=== PATIENT | male | born 1985 | race Hispanic/Latino ===

== ENCOUNTER 2019-01-10 12:38 | Inpatient (IN) | payer BC, SELFPAY ==
[2019-01-10] VITALS (10 sets, daily range): BP systolic 122–143; BP diastolic 67–87; PULSE 91–108; RESP 12–26; TEMP 36.5–36.6; O2SAT 87–98; BMI 36.5
--- NOTE | 2019-01-10 12:43 | DI.RAD.S_ITS ---
PROCEDURE: XR CHEST 2V INDICATIONS: shortness of breath TECHNIQUE: 2 views of the chest were acquired. COMPARISON: None. FINDINGS: Surgical changes and devices: None. Lungs and pleura: Lungs are clear. No pleural effusions or pneumothorax. Mediastinum: Mediastinal contours are normal. Heart size is normal. Bones and chest wall: No suspicious bony abnormalities. Soft tissues appear unremarkable. IMPRESSION: Normal chest. Dictated by: Jing Mckeon M.D. on 01/10/2019 at 13:10 Approved by: Jing Mckeon M.D. on 01/10/2019 at 13:12
--- NOTE | 2019-01-10 15:06 | ED_ITS ---
HPI - SOB/Dyspnea General Chief Complaint: Shortness of Breath/Dyspnea Stated Complaint: Oxygen low Time Seen by Provider: 01/10/19 15:00 Source: patient Mode of arrival: ambulatory Limitations: no limitations History of Present Illness 33-year-old male, nonsmoker not fully vaccinated and otherwise healthy presents with an portfolio administrator from the [employer] and a chief complaint of progressive cough and shortness of breath with hypoxia measured in the mid 80s. He recently flew from [place] for work related reasons. He denies any history of the same. Does not smoke. 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 MD Complaint: shortness of breath and cough Onset (ago): day(s) Severity: moderate Consistency/Duration: constant Relieving factors: oxygen and rest Exacerbating factors: movement and coughing Associated symptoms: denies other symptoms Related Data Home Medications Medication Instructions Recorded Confirmed No Known Home Medications 01/10/19 01/10/19 Allergies Allergy/AdvReac Type Severity Reaction Status Date / Time No Known Drug Allergies Allergy Verified 01/10/19 12:40 Review of Systems Constitutional Denies chills, Denies fever(s), Denies lethargy and Denies weakness Eyes Denies change in vision, Denies eye discharge, Denies irritation and Denies loss of vision ENT Ears, Nose, Mouth, and Throat: Denies change in voice, Denies neck pain and Denies sore throat Cardiovascular Denies chest pain, Denies irregular heart rhythm, Denies lightheadedness, Denies palpitations, Reports dyspnea, Denies dyspnea on exertion and Denies orthopnea Respiratory Reports cough, Reports dyspnea, Denies dyspnea on exertion and Denies wheezing Gastrointestinal Gastrointestinal: Denies abdominal pain, Denies change in bowel habits, Denies diarrhea, Denies nausea and Denies vomiting Genitourinary Denies hematuria, Denies flank pain, Denies urinary incontinence and Denies urinary urgency Musculoskeletal Denies neck pain Integumentary/Breasts Denies pruritus, Denies erythema, Denies rash and Denies wounds Neurologic Denies confusion, Denies loss of vision and Denies weakness Psychiatric Denies anxiety, Denies confusion, Denies depression, Denies homicidal ideation and Denies suicidal ideation Endocrine Denies palpitations Hematologic/Lymphatic Denies easy bruising Allergic/Immunologic Denies wheezing PFSH Social History Smoking Status: Never smoker Social History household members: spouse and family Smoking Status: Never smoker Exam Narrative Exam Narrative: GENERAL: This is a well-nourished, well-developed patient, in mild distress. HEAD: Atraumatic. Normocephalic. No temporal or scalp tenderness. EYES: Pupils equal round and reactive. Extraocular motions intact. No scleral icterus. No injection or drainage. ENT: Nose without bleeding, purulent drainage or septal hematoma. Throat without erythema, tonsillar hypertrophy or exudate. Uvula midline. Airway patent. NECK: Trachea midline. No JVD or lymphadenopathy. Supple, nontender, no meningeal signs. CARDIOVASCULAR: Regular rate and rhythm without murmurs, gallops, or rubs. RESPIRATORY: Clear to auscultation. Expiratory wheeze GASTROINTESTINAL: Abdomen soft, non-tender, nondistended. No hepato-splen omegaly, or palpable masses. No guarding. EXTREMITIES: No clubbing, cyanosis, or edema. No joint tenderness, effusion, or edema noted. BACK: Nontender without deformity or crepitance. No flank tenderness. NEURO: AOx3. SKIN: No rash or erythema. Initial Vital Signs Initial Vital Signs: Vital Signs Temperature 97.7 F 01/10/19 12:40 Pulse Rate 108 H 01/10/19 12:40 Respiratory Rate 20 01/10/19 12:40 Blood Pressure 138/87 01/10/19 12:40 Pulse Oximetry 94 01/10/19 12:40 Course Orders Ordered: ED Orders 01/10/19 12:43 Consult to Respiratory Therapy Evaluate & Treat XR chest 2V Stat 01/10/19 15:06 Arterial Blood Gas Stat 01/10/19 15:20 B Type Natriuretic Peptide Stat Basic Metabolic Panel Stat Complete Blood Count AUTO DIFF Stat Magnesium Stat Procalcitonin Stat Troponin & CK Cardiac Panel Stat 01/10/19 15:56 CT angio chest PE protocol Stat 01/10/19 17:29 Respiratory Panel (Film Array) Stat Discontinued Medications Albuterol/Ipratropium (Duoneb) 3 ml INH NOW ONE Stop: 01/10/19 16:43 Last Admin: 01/10/19 16:54 Dose: 3 ml Methylprednisolone (Solu-Medrol 125 Mg Vial) 125 mg IV NOW ONE Stop: 01/10/19 16:43 Last Admin: 01/10/19 17:24 Dose: 125 mg Reevaluation(s) Reevaluation #1: though patient has a relatively normal peak flow he is given a DuoNeb and does feel some improvement in symptoms but not in measurable and points Consultations Consultation #1: Dr. Jameson happy to accept Vital Signs - 8 hr 01/10/19 12:40 01/10/19 15:05 01/10/19 15:29 Temperature 97.7 F Pulse Rate 108 H 95 H Respiratory Rate 20 26 H Blood Pressure 138/87 Blood Pressure [Left Arm] 122/78 Pulse Oximetry 94 87 L 92 01/10/19 16:07 01/10/19 16:45 01/10/19 17:15 Temperature Pulse Rate 95 H 94 H 102 H Respiratory Rate 12 23 22 Blood Pressure Blood Pressure [Left Arm] 131/79 128/76 143/76 H Pulse Oximetry 97 95 98 01/10/19 17:34 01/10/19 17:43 Temperature Pulse Rate 105 H 100 H Respiratory Rate 26 H 22 Blood Pressure Blood Pressure [Left Arm] 128/76 Pulse Oximetry 95 95 MDM - SOB/Dyspnea Medical Records Attestation: I reviewed the patient's medical records. Lab Data Result diagrams: 01/10/19 15:20 01/10/19 15:20 Lab Results 01/10/19 01/10/19 01/10/19 Range/Units 15:06 15:20 15:20 WBC 14.0 H (4.5-11.0) X10^3/uL RBC 4.75 (4.5-5.9) X10^6/uL Hgb 14.5 (13.5-17.5) g/dL Hct 43.0 (41-53) % MCV 90.6 (80-100) fL MCH 30.5 (26-34) PG MCHC 33.7 (30-36) % RDW 14.1 (11.6-14.8) % Plt Count 239 (150-400) X10^3/uL Neut % (Auto) 71.1 (50-75) % Lymph % (Auto) 17.4 L (25-40) % [place] % (Auto) 6.3 (3-14) % Eos % (Auto) 4.8 H (2-4) % Baso % (Auto) 0.4 (0-2) % Neut # (Auto) 83271 H (6470-2697) /uL Lymph # (Auto) 2400 (7666-0761) /uL [place] # (Auto) 900 (0-900) /uL Eos # (Auto) 700 H (0-450) /uL Baso # (Auto) 100 (0-100) /uL ABG pH 7.41 (7.35-7.45) ABG pCO2 38.4 (35-45) mmHg ABG pO2 54 L (80-100) mmHg ABG HCO3 25 (22-26) mmol/L ABG Total CO2 26 (21-31) mmol/L ABG O2 Saturation 88 L (95-100) % ABG Base Excess 0.0 (-2-2) mmol/L FiO2 0.21 Sodium 141 (137-145) mmol/L Potassium 3.8 (3.4-5.1) mmol/L Chloride 104 (98-107) mmol/L Carbon Dioxide 26 (22-32) mmol/L BUN 14 (9-20) mg/dL Creatinine 1.00 (0.66-1.25) mg/dL Estimated GFR > 60.0 (>60) mL/min BUN/Creatinine Ratio 14.0 (6-22) Glucose 93 (70-100) mg/dL Calcium 8.8 (8.4-10.2) mg/dL Magnesium 2.2 (1.6-2.3) mg/dL Total Creatine Kinase 748 H (55-170) U/L CK-MB (CK-2) 1.86 (<2.37) ng/mL CK-MB (CK-2) Rel Index 0.2 L (1.5-5.0) % Troponin I < 0.012 (0.01-0.034) ng/mL B-Natriuretic Peptide < 100 (<100) Procalcitonin (<0.5) ng/mL Chlamy pneumoniae PCR (Not Detect) Adenovirus (PCR) (Not Detect) B.parapertussis DNA PCR (Not Detect) Coronavirus OC43 (PCR) (Not Detect) Coronavirus HKU1 (PCR) (Not Detect) Coronavirus 229E (PCR) (Not Detect) Coronavirus NL63 (PCR) (Not Detect) Human Metapneumovir PCR (Not Detect) Influenza Type A (PCR) (Not Detect) Influenza Type B (PCR) (Not Detect) M. pneumoniae (PCR) (Not Detect) Parainfluenza 1 (PCR) (Not Detect) Parainfluenza 2 (PCR) (Not Detect) Parainfluenza 3 (PCR) (Not Detect) Parainfluenza 4 (PCR) (Not Detect) RSV (PCR) (Not Detect) Entero/Rhino (PCR) (Not Detect) 01/10/19 01/10/19 Range/Units 15:20 17:29 WBC (4.5-11.0) X10^3/uL RBC (4.5-5.9) X10^6/uL Hgb (13.5-17.5) g/dL Hct (41-53) % MCV (80-100) fL MCH (26-34) PG MCHC (30-36) % RDW (11.6-14.8) % Plt Count (150-400) X10^3/uL Neut % (Auto) (50-75) % Lymph % (Auto) (25-40) % [place] % (Auto) (3-14) % Eos % (Auto) (2-4) % Baso % (Auto) (0-2) % Neut # (Auto) (2376-1457) /uL Lymph # (Auto) (8161-4159) /uL [place] # (Auto) (0-900) /uL Eos # (Auto) (0-450) /uL Baso # (Auto) (0-100) /uL ABG pH (7.35-7.45) ABG pCO2 (35-45) mmHg ABG pO2 (80-100) mmHg ABG HCO3 (22-26) mmol/L ABG Total CO2 (21-31) mmol/L ABG O2 Saturation (95-100) % ABG Base Excess (-2-2) mmol/L FiO2 Sodium (137-145) mmol/L Potassium (3.4-5.1) mmol/L Chloride (98-107) mmol/L Carbon Dioxide (22-32) mmol/L BUN (9-20) mg/dL Creatinine (0.66-1.25) mg/dL Estimated GFR (>60) mL/min BUN/Creatinine Ratio (6-22) Glucose (70-100) mg/dL Calcium (8.4-10.2) mg/dL Magnesium (1.6-2.3) mg/dL Total Creatine Kinase (55-170) U/L CK-MB (CK-2) (<2.37) ng/mL CK-MB (CK-2) Rel Index (1.5-5.0) % Troponin I (0.01-0.034) ng/mL B-Natriuretic Peptide (<100) Procalcitonin < 0.05 (<0.5) ng/mL Chlamy pneumoniae PCR Not detected (Not Detect) Adenovirus (PCR) Not detected (Not Detect) B.parapertussis DNA PCR Not detected (Not Detect) Coronavirus OC43 (PCR) Not detected (Not Detect) Coronavirus HKU1 (PCR) Not detected (Not Detect) Coronavirus 229E (PCR) Not detected (Not Detect) Coronavirus NL63 (PCR) Not detected (Not Detect) Human Metapneumovir PCR Not detected (Not Detect) Influenza Type A (PCR) Not detected (Not Detect) Influenza Type B (PCR) Not detected (Not Detect) M. pneumoniae (PCR) Not detected (Not Detect) Parainfluenza 1 (PCR) Not detected (Not Detect) Parainfluenza 2 (PCR) Not detected (Not Detect) Parainfluenza 3 (PCR) Not detected (Not Detect) Parainfluenza 4 (PCR) Not detected (Not Detect) RSV (PCR) Not detected (Not Detect) Entero/Rhino (PCR) Not detected (Not Detect) Imaging Data Chest x-ray: Radiologist's impression: [address] [address] XRay Report Signed Patient: Francesco Sosa RMR#: [id number] : 1985Acct:[id number] Age/Sex: 33 / MDate of Service: 01/10/19 Loc: ED Accession Number: [id number] Procedure: XR chest 2V Ordering Provider: Aniket Corona D.O. PROCEDURE: XR CHEST 2V INDICATIONS: shortness of breath TECHNIQUE: 2 views of the chest were acquired. COMPARISON: None. FINDINGS: Surgical changes and devices: None. Lungs and pleura: Lungs are clear. No pleural effusions or pneumothorax. Mediastinum: Mediastinal contours are normal. Heart size is normal. Bones and chest wall: No suspicious bony abnormalities. Soft tissues appear unremarkable. IMPRESSION: Normal chest. Dictated by: Jing Mckeon M.D. on 01/10/2019 at 13:10 Approved by: Jing Mckeon M.D. on 01/10/2019 at 13:12 CT scan - chest: Radiologist's impression: Patient: Francesco Sosa R#: [id number] : 1985Acct:[id number] Age/Sex: 33 / MDate of Service: 01/10/19 Loc: ED Accession Number: [id number] Procedure: CT angio chest PE protocol Ordering Provider: Aniket Corona D.O. PROCEDURE: CT ANGIO CHEST PE PROTOCOL INDICATIONS: Chest pain, shortness of breath, hypoxia TECHNIQUE: After the administration of intravenous contrast, 2 mm thick sections acquired from the pulmonary apices to the posterior costophrenic angles. 3-dimensional maximum intensity projection (MIP) coronal and sagittal reformats were then acquired through the thorax. For radiation dose reduction, the following was used: automated exposure control, adjustment of mA and/or kV according to patient size. COMPARISON: [facility], CR, XR CHEST 2V, 01/10/2019, 12:52. FINDINGS: Image quality: Diagnostic Pulmonary arteries: Suboptimal timing of the contrast bolus is identified, limiting evaluation for small pulmonary emboli. No intraluminal filling defects are identified within the pulmonary arteries to the level of the segmental branches. Lungs and pleura: Lungs are clear. No pleural effusions or pneumothorax. Central and peripheral airways are patent. Mediastinum: Heart size is normal, without pericardial effusion. No mediastinal or hilar adenopathy. Thoracic aorta is normal in caliber and enhancement. Esophagus is normal in caliber. There may be a very small hiatal hernia. Bones and chest wall: No suspicious bony lesions. Ribs and thoracic spine appear intact throughout. Thyroid gland is not enlarged or adequately evaluated. No axillary or supraclavicular adenopathy. Abdomen: The included portions of the upper abdomen demonstrate the liver to be diffusely hypodense when compared to the spleen. Areas of normal hepatic density appear to be present within the gallbladder fossa. Otherwise, included portions of the upper abdomen are unremarkable. IMPRESSION: 1. Suboptimal timing of the contrast bolus without a definite pulmonary embolism evident to the level of the segmental branches. 2. No acute cardia pulmonary processes evident. 3. Hepatic steatosis. 4. Possible small hiatal hernia. Dictated by: Neto Vasquez M.D. on 01/10/2019 at 15:34 Approved by: Neto Vasquez M.D. on 01/10/2019 at 15:41 Discharge Plan Departure Patient Disposition: Admitted as Observation Clinical Impression: Acute respiratory failure with hypoxia Discharge Date/Time: 01/10/19 18:15 Interventions: ED Discharge Assessment Last Done: 01/10/19 18:13 Admit Date/Time: 01/10/19 17:41 Admit Provider: Rosetta Jameson
[2019-01-10 15:26] LABS: Add Manual Diff / Slide Review NO; Basophils Absolute Auto 100 /uL (0-100); Basophils Percent Auto 0.4 % (0-2); Eosinophils Absolute Auto 700 /uL (0-450); Eosinophils Percent Auto 4.8 % (2-4); Hemoglobin 14.5 g/dL (13.5-17.5); Lymphocytes Absolute Auto 2400 /uL (1100-4500); Lymphocytes Percent Auto 17.4 % (25-40); Mean Corpuscular HGB Conc 33.7 % (30-36); Mean Corpuscular Hemoglobin 30.5 PG (26-34); Mean Corpuscular Volume 90.6 fL (80-100); Monocytes Absolute Auto 900 /uL (0-900); Monocytes Percent Auto 6.3 % (3-14); Neutrophils Absolute Auto 10000 /uL (1500-7000); Neutrophils Percent Auto 71.1 % (50-75); Platelet Count 239 X10^3/uL (150-400); Red Blood Cell Count 4.75 X10^6/uL (4.5-5.9); Red Cell Distribution Width 14.1 % (11.6-14.8)
[2019-01-10 15:42] LABS: Blood Urea Nitrogen 14 mg/dL (9-20); Calcium 8.8 mg/dL (8.4-10.2); Carbon Dioxide 26 mmol/L (22-32); Chloride 104 mmol/L (98-107); Creatine Kinase 748 U/L (55-170); Estimated Glomerular Filt Rate > 60.0 mL/min (>60); Glucose 93 mg/dL (70-100); HEMOLYSIS < 15 (0-50); Magnesium 2.2 mg/dL (1.6-2.3); Potassium 3.8 mmol/L (3.4-5.1); Sodium 141 mmol/L (137-145)
[2019-01-10 15:52] LABS: Troponin I < 0.012 ng/mL (0.01-0.034)
--- NOTE | 2019-01-10 15:56 | DI.CT.S_ITS ---
PROCEDURE: CT ANGIO CHEST PE PROTOCOL INDICATIONS: Chest pain, shortness of breath, hypoxia TECHNIQUE: After the administration of intravenous contrast, 2 mm thick sections acquired from the pulmonary apices to the posterior costophrenic angles. 3-dimensional maximum intensity projection (MIP) coronal and sagittal reformats were then acquired through the thorax. For radiation dose reduction, the following was used: automated exposure control, adjustment of mA and/or kV according to patient size. COMPARISON: [facility], CR, XR CHEST 2V, 01/10/2019, 12:52. FINDINGS: Image quality: Diagnostic Pulmonary arteries: Suboptimal timing of the contrast bolus is identified, limiting evaluation for small pulmonary emboli. No intraluminal filling defects are identified within the pulmonary arteries to the level of the segmental branches. Lungs and pleura: Lungs are clear. No pleural effusions or pneumothorax. Central and peripheral airways are patent. Mediastinum: Heart size is normal, without pericardial effusion. No mediastinal or hilar adenopathy. Thoracic aorta is normal in caliber and enhancement. Esophagus is normal in caliber. There may be a very small hiatal hernia. Bones and chest wall: No suspicious bony lesions. Ribs and thoracic spine appear intact throughout. Thyroid gland is not enlarged or adequately evaluated. No axillary or supraclavicular adenopathy. Abdomen: The included portions of the upper abdomen demonstrate the liver to be diffusely hypodense when compared to the spleen. Areas of normal hepatic density appear to be present within the gallbladder fossa. Otherwise, included portions of the upper abdomen are unremarkable. IMPRESSION: 1. Suboptimal timing of the contrast bolus without a definite pulmonary embolism evident to the level of the segmental branches. 2. No acute cardia pulmonary processes evident. 3. Hepatic steatosis. 4. Possible small hiatal hernia. Dictated by: Neto Vasquez M.D. on 01/10/2019 at 15:34 Approved by: Neto Vasquez M.D. on 01/10/2019 at 15:41
[2019-01-10 15:57] LABS: CKMB % Relative Index 0.2 % (1.5-5.0); Creatine Kinase MB 1.86 ng/mL (<2.37)
[2019-01-10 16:02] LABS: PCO2 ABG 38.4 mmHg (35-45); pH ABG 7.41 (7.35-7.45)
[2019-01-10 16:03] LABS: HCO3 ABG 25 mmol/L (22-26); Oxygen Saturation ABG 88 % (95-100); PO2 ABG 54 mmHg (80-100); TCO2 ABG 26 mmol/L (21-31)
[2019-01-10 16:04] LABS: Fractionated Inspired Oxygen 0.21
[2019-01-10 16:11] LABS: Procalcitonin < 0.05 ng/mL (<0.5)
[2019-01-10 16:24] LABS: B Type Natriuretic Peptide < 100 (<100)
[2019-01-10] MEDS: ALBUTEROL/IPRATROPIUM 3 ML AMPUL INH ×2 (16:54→21:30)
[2019-01-10] MEDS: methylPREDNISolone 125 MG/2 ML VIAL IV (17:24)
--- NOTE | 2019-01-10 17:32 | PC.NURSE ---
works at the [employer], reports, shortness of breath since yesterday, worsen with exertion. with coughing. denies fever,vomiting,smoking.
--- NOTE | 2019-01-10 17:35 | PC.NURSE ---
CO 7
[2019-01-10 18:45] LABS: Adenovirus Not Detected (Not Detect); Bordetella pertussis Not Detected (Not Detect); Chlamydophila pneumoniae Not Detected (Not Detect); Coronavirus 229E Not Detected (Not Detect); Coronavirus HKU1 Not Detected (Not Detect); Coronavirus NL 63 Not Detected (Not Detect); Coronavirus OC43 Not Detected (Not Detect); Human Metapneumovirus Not Detected (Not Detect); Human Rhinovirus/Enterovirus Not Detected (Not Detect); Influenza A Not Detected (Not Detect); Influenza B Not Detected (Not Detect); Mycoplasma pneumoniae Not Detected (Not Detect); Parainfluenza Virus 1 Not Detected (Not Detect); Parainfluenza Virus 2 Not Detected (Not Detect); Parainfluenza Virus 3 Not Detected (Not Detect); Parainfluenza Virus 4 Not Detected (Not Detect); Respiratory Syncytial Virus Not Detected (Not Detect)
--- NOTE | 2019-01-10 23:22 | DI.RAD.S_ITS ---
PROCEDURE: XR CHEST 1V INDICATIONS: Cough, Shortness of breath TECHNIQUE: One view of the chest was acquired. COMPARISON: [facility], CR, XR CHEST 2V, 01/10/2019, 12:52. FINDINGS: Surgical changes and devices: None. Lungs and pleura: Lungs are clear. No pleural effusions or pneumothorax. Mediastinum: Mediastinal contours appear normal. Heart size is normal. Bones and chest wall: No suspicious bony lesions. Overlying soft tissues appear unremarkable. IMPRESSION: No acute cardiopulmonary disease process. Dictated by: Shavon Roman MD, PhD on 01/11/2019 at 8:46 Approved by: Shavon Roman MD, PhD on 01/11/2019 at 8:47
--- NOTE | 2019-01-10 23:45 | PC.NURSE ---
ADMISSION NOTE: Patient admitted to acute care this rajani shift. Lung sounds tight with exp. Wheezes. RT at bedside to assess. Patient denies pain. Denies fever. Cough for 2 days with SOB times 1 day. VSS. Will continue to monitor.
[2019-01-11] VITALS (12 sets, daily range): BP systolic 115–133; BP diastolic 65–75; PULSE 85–115; RESP 14–20; TEMP 36.4–36.9; O2SAT 92–98; BMI 36.3
--- NOTE | 2019-01-11 04:14 | P.HP_ITS ---
History of Present Illness Date Patient Seen: 01/10/19 Time Patient Seen: 22:30 Chief complaint: Oxygen low Narrative: This is a 33-year-old male patient with no significant medical history that presents to the ER with worsening coughing and shortness of breath. The patient reports that he has had progressive dyspnea and coughing for the last 2 days with associated fevers and chills. The patient reports breathing is worse at night and as that he typically sleeps on his abdomen but has to sleep up to breathe. He denies prodromal symptoms of head congestion or sore throat. 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 He reports no sick contacts. He recently flew in from [place] for work 1 month ago and is slated to return home in February. He has no local primary care provider. He is taking no medications for his symptoms. On arrival in the ER patient had elevated blood pressure 138/87, tachycardic at 108, respirations of 20 and oxygen saturation level of 87% on room air. On laboratory analysis the patient does have leukocytosis with a white count of 14.0 and has chemistries within normal limits. He has an increased total CK but negative MB and index. He had a CTA completed which showed hepatic steatosis and a possible small hiatal hernia. His checks x-ray showed no acute cardiopulmonary abnormalities. He did have ABG done on room air demonstrated a pH of 7.41, pCO2 of 38.4 hypoxia with a PO2 of 54 and a bicarb of 25 with a base excess of 0. His procalcitonin was less than 0.05 and his respiratory PCR was completely negative. The patient is admitted to the hospital for acute hypoxic respiratory failure. Patient History Social History household members: spouse and family Smoking Status: Never smoker Comment: The patient is and staying in his temporary housing in [facility], his and continue to live in [place] where the patient will return in February. Patient's father from cancer his mother is living with hypertension. He has 3 brothers all of whom are in good health. Smoking: admits to smoking as a teenager with a total lifetime consumption of 2 cartons Alcohol: Denies use ever Substance use: Denies recreational pharmaceuticals or cannabis products Advanced directives: Patient wishes to be full code and designates his Jeannie still resides in [place] to be his surrogate decision maker. Family & Social History Family History Father No problems noted. Mother Hypertension Social History: household members spouse,family Prior Living Arrangements House Safety & Behavioral: Feels Safe in Current Yes Environment Been Physically Hurt or No Threatened By a Person Suicidal Ideation Description None Tobacco & Substance use: Smoking Status Never smoker Substance Use Type does not use Meds Home Medications Medication Instructions Recorded Confirmed Type No Known Home Medications 01/10/19 01/10/19 History Allergies Allergy/AdvReac Type Severity Reaction Status Date / Time No Known Drug Allergies Allergy Verified 01/10/19 12:40 Review of Systems Review of Systems Constitutional: Positive for illness for 2-3 days with fevers, chills, sweats, denies fatigue, good appetite with stable weight Eyes: Denies visual changes, denies floaters, diplopia ENT: Denies headaches, hearing changes, ear pain, no nasal congestion, rhinorrhea, no dysphagia, sore throat or dentalgia, no neck stiffness or pain Respiratory: Positive for cough and wheezing, shortness of breath at rest and on exertion Cardiovascular: Denies chest pain, palpitations, orthostatic dizziness, syncope, edema Gastrointestinal: Denies abdominal pain, nausea or vomiting, no reflux or bloating, constipation or diarrhea, denies blood in stool. Genitourinary: denies discharge, no complains of frequency, burning or urgency, hematuria on voiding Musculoskeletal: denies falls, weakness, limited movement, cramps, edema, myalgia or joint swelling. Integumentary: denies skin lesions, masses, rashes, hives, itching or hair loss Neurological: denies dizziness, confusion, numbness or tingling, speech difficulties or seizures Psychiatric: denies disturbances in thought, attentions or mood, denies substance abuse Endocrine: denies excessive thirst or frequent urination, goiter, lethargy, abnormal sweating, and heat/cold intolerance. Heme/lymph: Denies lymphadenopathy, abnormal bleeding or bruising Exam Vital Signs (past 8 hours): - 01/10/19 21:29 01/10/19 23:15 Temperature 97.8 F Pulse Rate 91 H 99 H Respiratory Rate 20 18 Blood Pressure 130/67 Pulse Oximetry 94 96 Oxygen Delivery Method Nasal Cannula Oxygen Flow Rate 3 Narrative Exam Narrative: General: Well developed, obese male with BMI of 36.3, who is afebrile and ill-appearing. Skin: Warm, dry, pink, no rashes, no visible lesions HEENT: Normocephalic, PERRLA, EOMs intact without nystagmus, conjunctiva moist, sclera is anicteric, no ear pain, hearing grossly normal, no sinus tenderness to percussion, no rhinorrhea, oropharynx is moist and pink without lesions or exudate, uvula midline, posterior pharynx without inflammation, no cervical lymphadenopathy Neck: Supple, no masses, thyroid non tender without thyromegaly or nodules, trachea midline, no carotid bruits or JVD, no supraclavicular lymphadenopathy Cardiac: Regular rate and rhythm, S1-S2, no murmur, no gallops or rubs, 2+ radial pulse, 1+ dorsalis pedis pulse, capillary refill is brisk, no edema Chest: Symmetrical movement, tachypneic, breathing non labored, no accessory muscle use, nonproductive cough, BS generally diminished with scattered central coarseness, no crackles or wheezing Abdomen: Soft, no tenderness or guarding, no masses or organomegaly, no flank or suprapubic pain, BS normal. Back: Normal curvature, no tenderness to palpation, no CVA tenderness on percussion Extremities: Full ROM, no synovial effusions or deformities, strength 5/5 and symmetrical, stable gait Neuro: AAOx4, cranial nerves II-XII grossly intact, distal sensation intact to light touch, no paresthesias Psych: pleasant, thought coherent, stable mood and congruent affect Objective Labs Result Diagrams: 01/10/19 15:20 01/10/19 15:20 Labs: Laboratory Results - last 24 hr 01/10/19 01/10/19 01/10/19 15:06 15:20 15:20 WBC 14.0 H RBC 4.75 Hgb 14.5 Hct 43.0 MCV 90.6 MCH 30.5 MCHC 33.7 RDW 14.1 Plt Count 239 Neut % (Auto) 71.1 Lymph % (Auto) 17.4 L [place] % (Auto) 6.3 Eos % (Auto) 4.8 H Baso % (Auto) 0.4 Neut # (Auto) 15437 H Lymph # (Auto) 2400 [place] # (Auto) 900 Eos # (Auto) 700 H Baso # (Auto) 100 ABG pH 7.41 ABG pCO2 38.4 ABG pO2 54 L ABG HCO3 25 ABG Total CO2 26 ABG O2 Saturation 88 L ABG Base Excess 0.0 FiO2 0.21 Sodium 141 Potassium 3.8 Chloride 104 Carbon Dioxide 26 BUN 14 Creatinine 1.00 Estimated GFR > 60.0 BUN/Creatinine Ratio 14.0 Glucose 93 Calcium 8.8 Magnesium 2.2 Total Creatine Kinase 748 H CK-MB (CK-2) 1.86 CK-MB (CK-2) Rel Index 0.2 L Troponin I < 0.012 B-Natriuretic Peptide < 100 Procalcitonin Chlamy pneumoniae PCR Adenovirus (PCR) B.parapertussis DNA PCR Coronavirus OC43 (PCR) Coronavirus HKU1 (PCR) Coronavirus 229E (PCR) Coronavirus NL63 (PCR) Human Metapneumovir PCR Influenza Type A (PCR) Influenza Type B (PCR) M. pneumoniae (PCR) Parainfluenza 1 (PCR) Parainfluenza 2 (PCR) Parainfluenza 3 (PCR) Parainfluenza 4 (PCR) RSV (PCR) Entero/Rhino (PCR) 01/10/19 01/10/19 15:20 17:29 WBC RBC Hgb Hct MCV MCH MCHC RDW Plt Count Neut % (Auto) Lymph % (Auto) [place] % (Auto) Eos % (Auto) Baso % (Auto) Neut # (Auto) Lymph # (Auto) [place] # (Auto) Eos # (Auto) Baso # (Auto) ABG pH ABG pCO2 ABG pO2 ABG HCO3 ABG Total CO2 ABG O2 Saturation ABG Base Excess FiO2 Sodium Potassium Chloride Carbon Dioxide BUN Creatinine Estimated GFR BUN/Creatinine Ratio Glucose Calcium Magnesium Total Creatine Kinase CK-MB (CK-2) CK-MB (CK-2) Rel Index Troponin I B-Natriuretic Peptide Procalcitonin < 0.05 Chlamy pneumoniae PCR Not detected Adenovirus (PCR) Not detected B.parapertussis DNA PCR Not detected Coronavirus OC43 (PCR) Not detected Coronavirus HKU1 (PCR) Not detected Coronavirus 229E (PCR) Not detected Coronavirus NL63 (PCR) Not detected Human Metapneumovir PCR Not detected Influenza Type A (PCR) Not detected Influenza Type B (PCR) Not detected M. pneumoniae (PCR) Not detected Parainfluenza 1 (PCR) Not detected Parainfluenza 2 (PCR) Not detected Parainfluenza 3 (PCR) Not detected Parainfluenza 4 (PCR) Not detected RSV (PCR) Not detected Entero/Rhino (PCR) Not detected Assessment & Plan Assessment & Plan narrative: This is a 33-year-old male patient who was admitted to the hospital for acute hypoxic respiratory failure. 1. Acute hypoxic respiratory failure -acute respiratory failure demonstrated by a hypoxemia with a pCO2 of 54 on arterial blood gas -patient is treated with oxygen nasal cannula to maintain oxygen saturations greater than 92% -Respiratory therapy to consult -duo nebs q.4 hours as needed -chest x-ray was normal however the patient does have leukocytosis, patient will receive ceftriaxone IV 2. Obesity, active, presumed chronic -BMI of 363, discussed diet and exercise -patient is referred to dietitian 3. Hepatic steatosis, present on admission, presumed chronic -identified on CT scan, teaching provided related to development of chronic liver disease -will obtain a lipid panel -will attempt to find a local provider for patient to follow up while he remains in [place] Patient is admitted to the hospital as an inpatient for treatment of acute respiratory failure with oxygen nebulizer treatments and the risk for complications and the need for ongoing monitoring. The patient's expected length of stay is greater than 2 midnights Quality VTE Deep Vein Thrombosis/Pulmonary Embolism Present on Admission: No
[2019-01-11] MEDS: ALBUTEROL/IPRATROPIUM 3 ML AMPUL INH ×3 (05:03→14:12)
[2019-01-11] MEDS: CEFTRIAXONE 1 GM/50 ML FROZ.PIGGY IV (05:54)
[2019-01-11 06:13] LABS: BUN Creatinine Ratio 16.7 (6-22); Blood Urea Nitrogen 15 mg/dL (9-20); Calcium 9.3 mg/dL (8.4-10.2); Carbon Dioxide 23 mmol/L (22-32); Chloride 105 mmol/L (98-107); Estimated Glomerular Filt Rate > 60.0 mL/min (>60); Glucose 159 mg/dL (70-100); HEMOLYSIS < 15 (0-50); Potassium 4.2 mmol/L (3.4-5.1); Sodium 139 mmol/L (137-145)
[2019-01-11 06:18] LABS: Add Manual Diff / Slide Review NO; Basophils Absolute Auto 0 /uL (0-100); Basophils Percent Auto 0.4 % (0-2); Eosinophils Absolute Auto 0 /uL (0-450); Eosinophils Percent Auto 0.1 % (2-4); Hematocrit 43.3 % (41-53); Hemoglobin 14.9 g/dL (13.5-17.5); Lymphocytes Absolute Auto 1300 /uL (1100-4500); Lymphocytes Percent Auto 9.3 % (25-40); Mean Corpuscular HGB Conc 34.4 % (30-36); Mean Corpuscular Hemoglobin 30.4 PG (26-34); Mean Corpuscular Volume 88.5 fL (80-100); Monocytes Absolute Auto 300 /uL (0-900); Monocytes Percent Auto 1.8 % (3-14); Neutrophils Absolute Auto 12600 /uL (1500-7000); Neutrophils Percent Auto 88.4 % (50-75); Platelet Count 246 X10^3/uL (150-400); Red Blood Cell Count 4.89 X10^6/uL (4.5-5.9); Red Cell Distribution Width 14.1 % (11.6-14.8); White Blood Cell Count 14.2 X10^3/uL (4.5-11.0)
[2019-01-11 06:20] LABS: Cholesterol 166 mg/dL (140-199); HDL Cholesterol 41 mg/dL (40-60); LDL Cholesterol Calculated 114 mg/dL (<100); Triglycerides 57 mg/dL (35-150)
[2019-01-11 07:11] LABS: Procalcitonin < 0.05 ng/mL (<0.5)
[2019-01-11 09:39] LABS: Creatine Kinase 413 U/L (55-170); D Dimer < 200 ng/mL (<230)
[2019-01-11 11:13] LABS: Troponin I < 0.012 ng/mL (0.01-0.034)
[2019-01-11] MEDS: SODIUM CHLORIDE 0.9% FLUSH 10 ML IV ×2 (11:25→20:11)
--- NOTE | 2019-01-11 13:26 | P.PN_ITS ---
Subjective Date Patient Seen: 01/11/19 Interval history: He is seen today to follow-up his elevated total creatinine kinase, his hypoxia and his dyspnea. He is feeling better with the oxygen on but remains hypoxic on room air. The white blood count is 14. The viral PCR is negative. The chest x-ray is negative. I have reviewed his chest x-ray and CT angiogram. The CT angiogram was read as suboptimal so a D-dimer is repeated which is now normal. The CK on admission was 748, so that is repeated and is 413. He is not on any statin therapy, he has had no prolonged immobilizations or other conditions that could predispose to muscle breakdown. He is 92-96% on 2 L nasal cannula. His blood sugar was 159, presumably just after receiving some D50 in his ceftriaxone. A troponin is also done and is less than 0.012. Exam Vital Signs (past 8 hours): - 01/11/19 05:50 01/11/19 08:00 01/11/19 08:58 Temperature 98.4 F 97.6 F Pulse Rate 89 103 H Respiratory Rate 16 18 Blood Pressure 119/69 123/68 Pulse Oximetry 92 93 93 01/11/19 09:13 01/11/19 12:12 Temperature 98.3 F Pulse Rate 104 H 110 H Respiratory Rate 14 20 Blood Pressure 115/68 Pulse Oximetry 94 97 Oxygen Delivery Method Nasal Cannula Oxygen Flow Rate 2 Narrative Exam Narrative: He is alert and oriented x3. There is no apparent distress. Heart is regular rate and rhythm without murmur. Lungs are clear to auscultation bilaterally. Extremities have no ankle edema. Objective Labs Result Diagrams: 01/11/19 05:26 01/11/19 05:26 Labs: Laboratory Results - last 24 hr 01/10/19 01/10/19 01/10/19 15:06 15:20 15:20 WBC 14.0 H RBC 4.75 Hgb 14.5 Hct 43.0 MCV 90.6 MCH 30.5 MCHC 33.7 RDW 14.1 Plt Count 239 Neut % (Auto) 71.1 Lymph % (Auto) 17.4 L [place] % (Auto) 6.3 Eos % (Auto) 4.8 H Baso % (Auto) 0.4 Neut # (Auto) 31208 H Lymph # (Auto) 2400 [place] # (Auto) 900 Eos # (Auto) 700 H Baso # (Auto) 100 D-Dimer ABG pH 7.41 ABG pCO2 38.4 ABG pO2 54 L ABG HCO3 25 ABG Total CO2 26 ABG O2 Saturation 88 L ABG Base Excess 0.0 FiO2 0.21 Sodium 141 Potassium 3.8 Chloride 104 Carbon Dioxide 26 BUN 14 Creatinine 1.00 Estimated GFR > 60.0 BUN/Creatinine Ratio 14.0 Glucose 93 Calcium 8.8 Magnesium 2.2 Total Creatine Kinase 748 H CK-MB (CK-2) 1.86 CK-MB (CK-2) Rel Index 0.2 L Troponin I < 0.012 B-Natriuretic Peptide < 100 Triglycerides Cholesterol LDL Cholesterol, Calc HDL Cholesterol Procalcitonin Chlamy pneumoniae PCR Adenovirus (PCR) B.parapertussis DNA PCR Coronavirus OC43 (PCR) Coronavirus HKU1 (PCR) Coronavirus 229E (PCR) Coronavirus NL63 (PCR) Human Metapneumovir PCR Influenza Type A (PCR) Influenza Type B (PCR) M. pneumoniae (PCR) Parainfluenza 1 (PCR) Parainfluenza 2 (PCR) Parainfluenza 3 (PCR) Parainfluenza 4 (PCR) RSV (PCR) Entero/Rhino (PCR) 01/10/19 01/10/19 01/11/19 15:20 17:29 05:26 WBC RBC Hgb Hct MCV MCH MCHC RDW Plt Count Neut % (Auto) Lymph % (Auto) [place] % (Auto) Eos % (Auto) Baso % (Auto) Neut # (Auto) Lymph # (Auto) [place] # (Auto) Eos # (Auto) Baso # (Auto) D-Dimer ABG pH ABG pCO2 ABG pO2 ABG HCO3 ABG Total CO2 ABG O2 Saturation ABG Base Excess FiO2 Sodium Potassium Chloride Carbon Dioxide BUN Creatinine Estimated GFR BUN/Creatinine Ratio Glucose Calcium Magnesium Total Creatine Kinase CK-MB (CK-2) CK-MB (CK-2) Rel Index Troponin I B-Natriuretic Peptide Triglycerides 57 Cholesterol 166 LDL Cholesterol, Calc 114 H HDL Cholesterol 41 Procalcitonin < 0.05 Chlamy pneumoniae PCR Not detected Adenovirus (PCR) Not detected B.parapertussis DNA PCR Not detected Coronavirus OC43 (PCR) Not detected Coronavirus HKU1 (PCR) Not detected Coronavirus 229E (PCR) Not detected Coronavirus NL63 (PCR) Not detected Human Metapneumovir PCR Not detected Influenza Type A (PCR) Not detected Influenza Type B (PCR) Not detected M. pneumoniae (PCR) Not detected Parainfluenza 1 (PCR) Not detected Parainfluenza 2 (PCR) Not detected Parainfluenza 3 (PCR) Not detected Parainfluenza 4 (PCR) Not detected RSV (PCR) Not detected Entero/Rhino (PCR) Not detected 01/11/19 01/11/19 01/11/19 05:26 05:26 05:26 WBC 14.2 H RBC 4.89 Hgb 14.9 Hct 43.3 MCV 88.5 MCH 30.4 MCHC 34.4 RDW 14.1 Plt Count 246 Neut % (Auto) 88.4 H Lymph % (Auto) 9.3 L [place] % (Auto) 1.8 L Eos % (Auto) 0.1 L Baso % (Auto) 0.4 Neut # (Auto) 84727 H Lymph # (Auto) 1300 [place] # (Auto) 300 Eos # (Auto) 0 Baso # (Auto) 0 D-Dimer ABG pH ABG pCO2 ABG pO2 ABG HCO3 ABG Total CO2 ABG O2 Saturation ABG Base Excess FiO2 Sodium 139 Potassium 4.2 Chloride 105 Carbon Dioxide 23 BUN 15 Creatinine 0.90 Estimated GFR > 60.0 BUN/Creatinine Ratio 16.7 Glucose 159 H Calcium 9.3 Magnesium Total Creatine Kinase CK-MB (CK-2) CK-MB (CK-2) Rel Index Troponin I B-Natriuretic Peptide Triglycerides Cholesterol LDL Cholesterol, Calc HDL Cholesterol Procalcitonin < 0.05 Chlamy pneumoniae PCR Adenovirus (PCR) B.parapertussis DNA PCR Coronavirus OC43 (PCR) Coronavirus HKU1 (PCR) Coronavirus 229E (PCR) Coronavirus NL63 (PCR) Human Metapneumovir PCR Influenza Type A (PCR) Influenza Type B (PCR) M. pneumoniae (PCR) Parainfluenza 1 (PCR) Parainfluenza 2 (PCR) Parainfluenza 3 (PCR) Parainfluenza 4 (PCR) RSV (PCR) Entero/Rhino (PCR) 01/11/19 01/11/19 01/11/19 09:21 09:21 09:21 WBC RBC Hgb Hct MCV MCH MCHC RDW Plt Count Neut % (Auto) Lymph % (Auto) [place] % (Auto) Eos % (Auto) Baso % (Auto) Neut # (Auto) Lymph # (Auto) [place] # (Auto) Eos # (Auto) Baso # (Auto) D-Dimer < 200 ABG pH ABG pCO2 ABG pO2 ABG HCO3 ABG Total CO2 ABG O2 Saturation ABG Base Excess FiO2 Sodium Potassium Chloride Carbon Dioxide BUN Creatinine Estimated GFR BUN/Creatinine Ratio Glucose Calcium Magnesium Total Creatine Kinase 413 H D CK-MB (CK-2) CK-MB (CK-2) Rel Index Troponin I < 0.012 B-Natriuretic Peptide Triglycerides Cholesterol LDL Cholesterol, Calc HDL Cholesterol Procalcitonin Chlamy pneumoniae PCR Adenovirus (PCR) B.parapertussis DNA PCR Coronavirus OC43 (PCR) Coronavirus HKU1 (PCR) Coronavirus 229E (PCR) Coronavirus NL63 (PCR) Human Metapneumovir PCR Influenza Type A (PCR) Influenza Type B (PCR) M. pneumoniae (PCR) Parainfluenza 1 (PCR) Parainfluenza 2 (PCR) Parainfluenza 3 (PCR) Parainfluenza 4 (PCR) RSV (PCR) Entero/Rhino (PCR) Assessment & Plan Assessment & Plan narrative: 1. Acute hypoxic respiratory failure -acute respiratory failure demonstrated on admission by a hypoxemia with a pCO2 of 54 on arterial blood gas -patient continues on oxygen nasal cannula to maintain oxygen saturations greater than 92% -Respiratory therapy is following -duo nebs q.4 hours as needed -chest x-ray was normal however the patient does have leukocytosis, patient will receive ceftriaxone IV for several days -no signs of a cardiac condition. The D-dimer would indicate this is not a CT angiogram failure to detect PE. 2. Obesity, active, presumed chronic -BMI of 36, discussed diet and exercise -patient was referred to dietitian 3. Hepatic steatosis, present on admission, presumed chronic -identified on CT scan, teaching provided related to development of chronic liver disease -will obtain a lipid panel -will attempt to find a local provider for patient to follow up while he remains in [place] 4. Elevated CK - no signs of muscle breakdown disease, prior statin therapy, myositis, rhabdomyolysis. The CK is dropping at this point without any clear cause. Quality VTE Deep Vein Thrombosis/Pulmonary Embolism Present on Admission: No
[2019-01-11] MEDS: guaiFENesin/DEXTROMETH Syrup 5 ML SYRUP PO ×2 (16:23→22:44)
[2019-01-11] MEDS: LEVALBUTEROL 1.25 MG/0.5 ML NEB INH ×2 (18:24→22:49)
--- NOTE | 2019-01-11 21:07 | PC.NURSE ---
1500- assumed care of pt. Pt ambulates steady in room. wants to go from walk later. Pt uses call light. verbalized to call if needing assistance. tachy around 120s. Pt given prn cough syrup. Pt complains his throat hurts and is sore. given some hot tea with honey. refusing tylenol. Hr has come down a bit, under 120s typically. got pretty short of breath after his walk today. o2 saturations above 98 while walking. but stops and resolves well. will continue to monitor. friends in and brought pt a pizza. no further needs at this time.
[2019-01-12] VITALS: BP 121/75; PULSE 95; RESP 20; TEMP 36.8; O2SAT 100
[2019-01-12] MEDS: CEFTRIAXONE 1 GM/50 ML FROZ.PIGGY IV (04:28)
[2019-01-12] MEDS: guaiFENesin/DEXTROMETH Syrup 5 ML SYRUP PO ×2 (04:34→10:19)
[2019-01-12 04:40] VITALS: BP 107/58; PULSE 86; RESP 20; TEMP 36.7; O2SAT 96
[2019-01-12 05:25] LABS: Add Manual Diff / Slide Review NO; Basophils Absolute Auto 100 /uL (0-100); Basophils Percent Auto 0.5 % (0-2); Eosinophils Absolute Auto 400 /uL (0-450); Eosinophils Percent Auto 3.3 % (2-4); Hematocrit 41.7 % (41-53); Hemoglobin 13.7 g/dL (13.5-17.5); Lymphocytes Absolute Auto 3000 /uL (1100-4500); Lymphocytes Percent Auto 24.1 % (25-40); Mean Corpuscular HGB Conc 32.9 % (30-36); Mean Corpuscular Hemoglobin 30.4 PG (26-34); Mean Corpuscular Volume 92.4 fL (80-100); Monocytes Absolute Auto 800 /uL (0-900); Monocytes Percent Auto 6.7 % (3-14); Neutrophils Absolute Auto 8000 /uL (1500-7000); Neutrophils Percent Auto 65.4 % (50-75); Platelet Count 220 X10^3/uL (150-400); Red Blood Cell Count 4.51 X10^6/uL (4.5-5.9); Red Cell Distribution Width 14.7 % (11.6-14.8); White Blood Cell Count 12.3 X10^3/uL (4.5-11.0)
[2019-01-12 05:26] LABS: Creatine Kinase 244 U/L (55-170)
--- NOTE | 2019-01-12 06:51 | PC.NURSE ---
Pt. is afebrile, VSS, 02 sats on RA 96-100%, lungs diminished on the bases otherwise CTA. Pt's. only c/o is feeling chest congestion, given Robitussin DM. Continue to treat and monitor.
[2019-01-12 08:00] VITALS: BP 134/73; PULSE 87; RESP 14; TEMP 36.6; O2SAT 98
[2019-01-12] MEDS: SODIUM CHLORIDE 0.9% FLUSH 10 ML IV (08:15)
--- NOTE | 2019-01-12 08:27 | PC.NURSE ---
Addendum entered by Sussy Rodriguez R.N. 01/12/19 11:13: Discharge: IV dc'd intact. Tele dc'd. Reviewed all d/c instructions with patient and he verbalized understanding. New scripts for Cefuroxime and Albuterol inhaler. Instructed to take Abx as directed and until all gone. Directed to follow up within 1 week w/ local doctor of his choice. Per MD Perez, it's okay if patient follows up at [facility]. Given info re: [facility] should he need/want to come to the walk-in clinic. Instructed to return to hospital if respiratory symptoms worsen, or with any other s/sx infection. Scripts faxed to [facility] per patient request. All belongings collected and sent with patient. Walked out to private vehicle accompanied by nursing staff. Given work release note from Dr Perez. Original Note: Addendum entered by Sussy Rodriguez R.N. 01/12/19 10:21: Remains alert and oriented X3. SpO2 on RA in the upper 90's at rest. HRR and in the 70's. Lungs CTA, slightly dim posterior bases. Given cough medicine at this time. Dr Perez plans to discharge today, awaiting orders. Patient aware of POC and is agreeable with the same. Original Note: Shift summary: Awake and alert, oriented X3. Reports annoying cough which is exacerbated by activity. Denies SOB at rest. States cough is producing clear sputum. SpO2 97% on RA at rest. Tele monitoring ongoing. Indep in room, gait steady. Able to make needs known and calls appropriately. Will complete full assessment when he's done eating breakfast. Call light in reach. Dr Perez in to see now.
--- NOTE | 2019-01-12 10:23 | P.DS_ITS ---
History of Present Illness Date Patient Seen: 01/12/19 Time Patient Seen: 10:51 Chief complaint: Oxygen low Narrative: This is a 33-year-old male patient with no significant medical history that presents to the ER with worsening coughing and shortness of breath. The patient reports that he has had progressive dyspnea and coughing for the last 2 days with associated fevers and chills. The patient reports breathing is worse at night and as that he typically sleeps on his abdomen but has to sleep up to breathe. He denies prodromal symptoms of head congestion or sore throat. 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 He reports no sick contacts. He recently flew in from [place] for work 1 month ago and is slated to return home in February. He has no local primary care provider. He is taking no medications for his symptoms. On arrival in the ER patient had elevated blood pressure 138/87, tachycardic at 108, respirations of 20 and oxygen saturation level of 87% on room air. On laboratory analysis the patient does have leukocytosis with a white count of 14.0 and has chemistries within normal limits. He has an increased total CK but negative MB and index. He had a CTA completed which showed hepatic steatosis and a possible small hiatal hernia. His checks x-ray showed no acute cardiopulmonary abnormalities. He did have ABG done on room air demonstrated a pH of 7.41, pCO2 of 38.4 hypoxia with a PO2 of 54 and a bicarb of 25 with a base excess of 0. His procalcitonin was less than 0.05 and his respiratory PCR was completely negative. The patient is admitted to the hospital for acute hypoxic respiratory failure. Discharge Providers Date of admission: 01/10/19 17:41 Consults: 01/10/19 12:43 Consult to Respiratory Therapy Evaluate & Treat Comment: Physician Instructions: Evaluate and treat 01/10/19 23:23 Consult to Dietitian, Adult Routine Comment: Reason For Exam: Obesity BMI 36.5 Consult to Discharge Planning Routine Comment: No local provider, lives in [place] Discharge provider: Perico Perez MD Discharge Date: 01/12/19 Summary Discharge Diagnosis: 1. Acute hypoxic respiratory failure 2. Obesity, active, presumed chronic 3. Hepatic steatosis, present on admission, presumed chronic 4. Elevated CK Hospital Course: 1. Acute hypoxic respiratory failure -acute respiratory failure demonstrated on admission by a hypoxemia with a pCO2 of 54 on arterial blood gas -he was able to be weaned off oxygen late yesterday afternoon. -Respiratory therapy followed him and was treated with Xopenex due to tachycardia. He will be going home on albuterol. -chest x-ray was normal however because of the unexplained hypoxia and leukocytosis, he was treated with ceftriaxone IV for 2 days and will be going home on 5 more days of oral cefuroxime. -no signs of a cardiac condition. The D-dimer would indicate this is not a CT angiogram failure to detect PE. The elevated CK did not appear to give us any definite clue as to the cause of the hypoxia. This was not neuroleptic malignant syndrome as he is not on any neuroleptics or any unidentified new medications. -because of the ongoing puzzling hypoxia I went over his recent history again today with him. 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 He has had no prolonged immobilizations, statin therapy, muscle aches or blackout spells. He has not been down for any prolonged period of time and has not been in any prolonged low temperature exposure situations. He has had no injuries. Other than repeated coughing causing chest wall muscle strain there is no other adequate explanation for the skeletal muscle enzymatic release evident. 2. Obesity, active, presumed chronic -BMI of 36, discussed diet and exercise -patient was referred to dietitian 3. Hepatic steatosis, present on admission, presumed chronic -identified on CT scan, teaching provided related to development of chronic liver diseasel -we were unable to identify a local provider for patient to follow up while he remains in [place] until February when he goes back to [place]. 4. Elevated CK - no signs of muscle breakdown disease, prior statin therapy, myositis, rhabdomyolysis. The CK is dropping at this point , down to 244 with a white count of 12.3 today without any clear cause. He would not be expected to have neuroleptic malignant syndrome, which could cause hypoxia and rhabdo, as he has not been on any medications at all. Time Spent with Patient Less than 30 minutes Exam Vital Signs (past 8 hours): - 01/12/19 04:40 01/12/19 08:00 Temperature 98.1 F 98 F Pulse Rate 86 87 Respiratory Rate 20 14 Blood Pressure 107/58 L 134/73 Pulse Oximetry 96 98 Oxygen Delivery Method Room Air Oxygen Flow Rate 0 Narrative Exam Narrative: Alert and oriented x3. No apparent distress. Heart is regular rate and rhythm without murmur. Lungs are clear to auscultation bilaterally. Extremities have no ankle edema. Objective Labs Result Diagrams: 01/12/19 04:48 01/11/19 05:26 Labs: Laboratory Results - last 24 hr 01/11/19 01/12/19 01/12/19 09:21 04:48 04:48 WBC 12.3 H RBC 4.51 Hgb 13.7 Hct 41.7 MCV 92.4 D MCH 30.4 MCHC 32.9 RDW 14.7 Plt Count 220 Neut % (Auto) 65.4 D Lymph % (Auto) 24.1 L [place] % (Auto) 6.7 Eos % (Auto) 3.3 Baso % (Auto) 0.5 Neut # (Auto) 8000 H Lymph # (Auto) 3000 [place] # (Auto) 800 Eos # (Auto) 400 Baso # (Auto) 100 Total Creatine Kinase 244 H Troponin I < 0.012 Discharge Plan Discharge Plan Patient Disposition: Home Discharge comment: Follow up with a local doctor of your choosing in about a week. Discharge Med Rec/Prescriptions Prescriptions: New cefuroxime axetil 500 mg tablet 500 mg PO Q12H 5 Days Qty: 10 RF: 0 albuterol sulfate 90 mcg/actuation HFA aerosol inhaler 1 puff INHALATION Q4-6H PRN (Reason: shortness of breath) Qty: 6.7 RF: 0 Visit Report/Discharge Packet Instructions: Cefuroxime, Respiratory Failure Discharge Data Attending Provider: Rosetta Jameson Admit Date/Time: 01/10/19 17:41 Quality VTE Deep Vein Thrombosis/Pulmonary Embolism Present on Admission: No
--- NOTE | 2019-01-12 11:14 | CM.DANOTE ---
DCP: Case received, EMR reviewed and met with patient. Introduced self and role. DCP template completed with information currently available. Patient is a 33 year old male who admitted on 01/10 in the afternoon to the care of the hospitalist team. Payer: confirmed: [employer] Out of [facility]. Patient came to hospital via family vehicle with shortness of breath. Was diagnosed with Hypoxia, of unknown origin. Met briefly with patient, alert and oriented. He is origially from [place], and resides with his . He is currently working at the [employer] here in [place]. He stated that he does have a doctor, but this is back in [place], and he could not recall the name. He stated that he was feeling better. Discussed case at rounds, and there was no reasoning as to why he had decreased oxygen saturation. P: Patient will be discharging home when stable. May discharge today. Valencia Block RN/Hospital Internship
== END 2019-01-12 11:15 | disposition home or self-care (01) | DRG 189 ==
LOC: ED 17:17 → AC 01-11 09:19
PROVIDERS: Family Medicine; Nurse Practitioner Adult Health; Admitting Provider Internal Medicine; Emergency Provider Emergency Medicine; Visit Provider Internal Medicine
DX: J96.01 Acute respiratory failure with hypoxia (principal); E66.9 Obesity, unspecified; Z68.36 Body mass index [BMI] 36.0-36.9, adult; K76.0 Fatty (change of) liver, not elsewhere classified; D72.829 Elevated white blood cell count, unspecified
CPT/HCPCS: 36415; 36591; 36600; 71045; 71046; 71275; 80048; 80061; 82550; 82553; 82805; 82962; 83735; 83880; 84145; 84484; 85025; 85379; 87633; 94150; 94640; 94760; 94762; 96374; 99284; 99285; J2930; J7614; Q9967